=== PATIENT | female | born 1995 | race Caucasian/White ===

== ENCOUNTER 2017-02-08 18:17 | Emergency (ER) | payer OTHER ==
[~2017-02-08] VITALS: Ht 157.5 cm; Wt 101.6 kg
== END 2017-02-08 21:07 | disposition home or self-care (01) ==
LOC: ER 18:17
DX: O99.519 Diseases of the respiratory system complicating pregnancy, unspecified trimester (principal); J09.X2 Influenza due to identified novel influenza A virus with other respiratory manifestations; Z3A.00 Weeks of gestation of pregnancy not specified
CPT/HCPCS: 81025; 87400; 99283